=== PATIENT | male | born 1950 | race Caucasian/White ===

== ENCOUNTER 2023-04-15 15:27 | Emergency (ER) | payer MEDICARE, SELFPAY ==
--- NOTE | ~2023-04-15 | XR_ITS ---
EXAMINATION: XR chest 2V 04/15/2023 16:43 INDICATION: Cough. History of pneumonia. PROCEDURE: 2 view chest COMPARISON: No prior studies for comparison. FINDINGS: There is left lower lobe atelectasis. No focal pneumonia, edema, pleural effusion or pneumo thorax. The cardiomediastinal silhouette is within normal limits. There are no pleural effusions. T here is no pneumothorax suspected. IMPRESSION: 1: Left lower lobe atelectasis. Reviewed, dictated and finalized at location A. 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
[2023-04-15 15:51] VITALS: BP 151/61; PULSE 56; RESP 20; TEMP 36.7; O2SAT 99
--- NOTE | 2023-04-15 16:19 | ED.GENADULT ---
HPI - General Adult General Chief complaint: Upper Respiratory Infection Stated complaint: Cough Time Seen by Provider: 04/15/23 16:19 Source: patient, RN notes reviewed and old records reviewed Mode of arrival: ambulatory Limitations: no limitations History of Present Illness HPI narrative: 72-year-old male presents to the [facility] with a cough for a couple weeks. Reports that he does have an appointment with a lung doctor on Monday Patient is a diabetic, states his blood sugar was 200 this morning Was seen in mid January as well as mid February for similar symptoms, treated in the emergency room in February. Currently switching primary care providers Patient in no acute distress. Denies any chest pain, abdominal pain. Denies any fevers Related Data Home Medications Medication Instructions Recorded Confirmed aspirin 81 mg chewable tablet 81 mg PO DAILY 09/01/22 04/15/23 atorvastatin 40 mg tablet 40 mg PO DAILY 09/01/22 04/15/23 carvedilol 6.25 mg tablet 6.25 mg PO Q12H 09/01/22 04/15/23 furosemide 40 mg tablet 40 mg PO BID 09/01/22 04/15/23 glimepiride 4 mg tablet 5 mg PO QAM 09/01/22 04/15/23 insulin aspart U-100 100 unit/mL See Rx Instructions subcut TID 09/01/22 04/15/23 (3 mL) subcutaneous pen (Novolog FlexPen U-100 Insulin aspart) insulin glargine 100 unit/mL (3 32 unit subcut QPM 09/01/22 04/15/23 mL) subcutaneous pen (Lantus Solostar U-100 Insulin) levothyroxine 75 mcg tablet 75 mcg PO DAILY 09/01/22 04/15/23 losartan 50 mg tablet 50 mg PO DAILY 09/01/22 04/15/23 potassium chloride 10 mEq 20 meq PO BID 09/01/22 04/15/23 capsule,extended release rivaroxaban 15 mg tablet (Xarelto) 15 mg PO DAILY 09/01/22 04/15/23 albuterol sulfate 90 mcg/actuation 1 puff inhalation Q4H PRN 01/31/23 04/15/23 aerosol inhaler DIRECTED tiotropium 2.5 mcg-olodaterol 2.5 2 puff inhalation DAILY 01/31/23 04/15/23 mcg/actuation mist for inhalation (Stiolto Respimat) Allergies Allergy/AdvReac Type Severity Reaction Status Date / Time amoxicillin Allergy Nausea Verified 04/15/23 16:15 codine Allergy Vomiting Uncoded 04/15/23 16:15 Review of Systems Review of Systems: All systems reviewed & are unremarkable except as noted in HPI and below Constitutional: Constitutional: Reports no additional constitutional complaints Eyes: Eyes: Reports no additional eye complaints ENT: Reports system reviewed and no additional complaints, except as documented Cardiovascular: Cardiovascular: Reports no additional cardiovascular complaints, Denies chest pain and Denies dyspnea Respiratory: Respiratory: Reports as per HPI, Reports chest congestion, Reports cough and Denies dyspnea Gastrointestinal: Gastrointestinal: Reports no additional gastrointestinal complaints, Denies abdominal pain, Denies nausea and Denies vomiting Musculoskeletal: Musculoskeletal: Reports no additional musculoskeletal complaints Integumentary/Breasts: Skin/Breast: Reports system reviewed and no additional complaints, except as docu Neurologic: Reports system reviewed and no additional complaints, except as documented Psychiatric: Psychiatric: Reports no additional psychiatric complaints Allergic/Immunologic: Allergic/Immunologic: Reports no additional allergic/immunologic complaints PMFSH Surgical History Surgical History History of appendectomy History of cholecystectomy History of shoulder surgery right frozen shoulder History of tonsillectomy Social History Social History Smoking status: Former smoker Comments At the time of my signature, I reviewed and agree with the nursing past medical, surgical, social, and family history. There is no relevant family history pertinent to the patient complaint. Exam Const: General: cooperative, healthy appearing, comfortable, no acute distress, well developed, alert and well nourished
== END 2023-04-15 17:15 | disposition home or self-care (01) ==
PROVIDERS: Emergency Provider Nurse Practitioner; PCP Family Medicine Adolescent Medicine
DX: J98.11 Atelectasis (principal); Z87.891 Personal history of nicotine dependence; J44.9 Chronic obstructive pulmonary disease, unspecified; E11.9 Type 2 diabetes mellitus without complications; E03.9 Hypothyroidism, unspecified; Z86.16 Personal history of COVID-19
CPT/HCPCS: 71046; 99213; G0463

== ENCOUNTER 2023-07-05 18:45 | Emergency (ER) | payer MEDICARE, SELFPAY ==
--- NOTE | 2023-07-05 18:48 | ED.URI ---
HPI - URI/Sore Throat General Chief Complaint: Upper Respiratory Infection Stated Complaint: sore throat,chills,chest congestion Time Seen by Provider: 07/05/23 18:48 Source: patient Mode of arrival: ambulatory Limitations: no limitations History of Present Illness HPI Narrative: Emilio is a 72-year-old male patient presenting to the clinic today with complaints of sore throat, chills, and chest congestion times 2-3 days. Reports that he was exposed to a sick kid yesterday. Has a low-grade temperature in the clinic today. Denies any increasing shortness of breath or chest pain. MD elicited complaint: sore throat and nasal congestion Related Data Home Medications Medication Instructions Recorded Confirmed aspirin 81 mg chewable tablet 81 mg PO DAILY 09/01/22 04/15/23 atorvastatin 40 mg tablet 40 mg PO DAILY 09/01/22 04/15/23 carvedilol 6.25 mg tablet 6.25 mg PO Q12H 09/01/22 04/15/23 furosemide 40 mg tablet 40 mg PO BID 09/01/22 04/15/23 glimepiride 4 mg tablet 5 mg PO QAM 09/01/22 04/15/23 insulin aspart U-100 100 unit/mL See Rx Instructions subcut TID 09/01/22 04/15/23 (3 mL) subcutaneous pen (Novolog FlexPen U-100 Insulin aspart) insulin glargine 100 unit/mL (3 32 unit subcut QPM 09/01/22 04/15/23 mL) subcutaneous pen (Lantus Solostar U-100 Insulin) levothyroxine 75 mcg tablet 75 mcg PO DAILY 09/01/22 04/15/23 losartan 50 mg tablet 50 mg PO DAILY 09/01/22 04/15/23 potassium chloride 10 mEq 20 meq PO BID 09/01/22 04/15/23 capsule,extended release rivaroxaban 15 mg tablet (Xarelto) 15 mg PO DAILY 09/01/22 04/15/23 albuterol sulfate 90 mcg/actuation 1 puff inhalation Q4H PRN 01/31/23 04/15/23 aerosol inhaler DIRECTED tiotropium 2.5 mcg-olodaterol 2.5 2 puff inhalation DAILY 01/31/23 04/15/23 mcg/actuation mist for inhalation (Stiolto Respimat) Allergies Allergy/AdvReac Type Severity Reaction Status Date / Time amoxicillin Allergy Nausea Verified 07/05/23 18:51 codine Allergy Vomiting Uncoded 07/05/23 18:51 Review of Systems Review of Systems: Pertinent positives per HPI. Patient denies any fever, chills, rash, headache, visual changes, dizziness, cough, shortness of breath, chest pain, palpitations, nausea, vomiting, diarrhea, constipation, abdominal pain, or any urinary issues. PMFSH Surgical History Surgical History History of appendectomy History of cholecystectomy History of shoulder surgery right frozen shoulder History of tonsillectomy Social History Social History Smoking status: Former smoker Comments At the time of my signature, I reviewed and agree with the nursing past medical, surgical, social, and family history. There is no relevant family history pertinent to the patient complaint. Exam Narrative: General: Well-developed, well nourished, in no apparent distress Head: Normocephalic, atraumatic Eyes: Pupils equally round and reactive to light bilaterally, EOM intact, sclera and conjunctive clear, no discharge, lids normal Ears: TMs intact and congested, ear canals clear, no drainage, grossly hearing normal. Nose: Nares patent, clear nasal discharge, no inflammation, no sinus tenderness. Mouth: Oral pharynx red without lesions or masses, good dentition, MMM. Postnasal drip Neck: Supple, trachea midline, no enlargement of anterior or posterior cervical nodes, no thyroid masses or goiter palpable. Cardio: Regular rate and rhythm, s1 and s2 normal, no murmur appreciated. Resp: Diminished in the bases, no rhonchi, rales, wheezing or rubs Course Course Emergency Course: Portions of this record may have been created with voice recognition software. Level of Care: Express Care Visit Vital Signs Vital signs: Vital signs reviewed MDM - URI/Sore Throat MDM Narrative Medical decision making narrative: At the time of visit patient is
[2023-07-05 19:04] VITALS: BP 149/65; PULSE 84; RESP 16; TEMP 37.8; O2SAT 96
== END 2023-07-05 19:24 | disposition home or self-care (01) ==
PROVIDERS: Emergency Provider Nurse Practitioner Family; PCP Family Medicine
DX: J44.9 Chronic obstructive pulmonary disease, unspecified (principal); Z20.822 Contact with and (suspected) exposure to COVID-19; Z87.891 Personal history of nicotine dependence; Z79.82 Long term (current) use of aspirin; E78.00 Pure hypercholesterolemia, unspecified; E11.9 Type 2 diabetes mellitus without complications; Z79.4 Long term (current) use of insulin; Z79.84 Long term (current) use of oral hypoglycemic drugs; E03.9 Hypothyroidism, unspecified
CPT/HCPCS: 87426; 87804; 99213; G0463

== ENCOUNTER 2024-03-15 10:28 | Emergency (ER) | payer MEDICARE, SELFPAY ==
[2024-03-15 10:40] VITALS: BP 138/50; PULSE 62; RESP 20; TEMP 36.9; O2SAT 98
--- NOTE | 2024-03-15 10:45 | ED_ITS ---
HPI - URI/Sore Throat General Chief Complaint: Upper Respiratory Infection Stated Complaint: Sore Throat/Sinus/COPD Time Seen by Provider: 03/15/24 10:45 Source: patient, RN notes reviewed and old records reviewed Mode of arrival: ambulatory Limitations: no limitations History of Present Illness HPI Narrative: Patient with complicated medical history presents with complaints of productive cough that has been present for approximately 1 month. Patient does report COPD, states that he is compliant with medications. Says that he has had a congested cough for the past month, cough is productive of yellow to green sputum, worsening. He does have occasional wheezing. He is complaining today of a sore throat that has been present for 3-4 days. He denies any fever, chills, sweats. Denies any injury or trauma. Voices no other concerns or complaints today Related Data Home Medications Medication Instructions Recorded Confirmed aspirin 81 mg chewable tablet 81 mg PO DAILY 09/01/22 03/15/24 atorvastatin 40 mg tablet 40 mg PO DAILY 09/01/22 03/15/24 carvedilol 6.25 mg tablet 6.25 mg PO Q12H 09/01/22 03/15/24 furosemide 40 mg tablet 40 mg PO BID 09/01/22 03/15/24 glimepiride 4 mg tablet 5 mg PO QAM 09/01/22 03/15/24 insulin aspart U-100 100 unit/mL See Rx Instructions subcut TID 09/01/22 03/15/24 (3 mL) subcutaneous pen (Novolog FlexPen U-100 Insulin aspart) insulin glargine 100 unit/mL (3 32 unit subcut QPM 09/01/22 03/15/24 mL) subcutaneous pen (Lantus Solostar U-100 Insulin) levothyroxine 75 mcg tablet 75 mcg PO DAILY 09/01/22 03/15/24 losartan 50 mg tablet 50 mg PO DAILY 09/01/22 03/15/24 potassium chloride 10 mEq 20 meq PO BID 09/01/22 03/15/24 capsule,extended release rivaroxaban 15 mg tablet (Xarelto) 15 mg PO DAILY 09/01/22 03/15/24 albuterol sulfate 90 mcg/actuation 1 puff inhalation Q4H PRN 01/31/23 03/15/24 aerosol inhaler DIRECTED tiotropium 2.5 mcg-olodaterol 2.5 2 puff inhalation DAILY 01/31/23 03/15/24 mcg/actuation mist for inhalation (Stiolto Respimat) Allergies Allergy/AdvReac Type Severity Reaction Status Date / Time amoxicillin Allergy Nausea Verified 03/15/24 10:32 codine Allergy Vomiting Uncoded 03/15/24 10:32 Review of Systems Review of Systems: All systems reviewed & are unremarkable except as noted in HPI and below Constitutional: Constitutional: Reports as per HPI and Reports no additional constitutional complaints ENT: Reports system reviewed and no additional complaints, except as documented, Reports as per HPI and Reports sore throat Cardiovascular: Cardiovascular: Reports as per HPI and Reports no additional cardiovascular complaints Respiratory: Respiratory: Reports as per HPI, Reports no additional respiratory complaints, Reports chest congestion, Reports cough, Reports excessive phlegm production and Reports wheezing Gastrointestinal: Gastrointestinal: Reports no additional gastrointestinal complaints [facility] Surgical History Surgical History History of appendectomy History of cholecystectomy History of shoulder surgery right frozen shoulder History of tonsillectomy Social History Social History Smoking status: Former smoker Comments At the time of my signature, I reviewed and agree with the nursing past medi alanna, surgical, social, and family history. There is no relevant family history pertinent to the patient complaint. Exam Const: General: cooperative, no acute distress, alert and awake Orientation/consciousness: oriented to person, oriented to place and oriented to time HENMT: Head: normal to inspection Mouth: Yes moist mucous membranes Throat: postnasal drainage Resp: Effort & Inspection: normal respiratory effort and able to speak in complete sentences Auscultation: clear to auscultation bilaterally, no crackles, no rales, no rhonchi, no wheezes and diminished lung sounds Cardio: Palpation: normal PMI Rate: regular rate Rhythm: regular rhythm Heart sounds: S1 normal heart sound present and S2 normal heart sound present Neuro: General: oriented to person, oriented to place and oriented to time Cranial nerves: Yes CN's II-XII intact bilaterally Psych: Appearance: grossly normal Thought process: Normal thought process present Insight: Good insight present (Psych) Judgement: Good judgement present (Psych) Course Course Level of Care: Express Care Visit Vital Signs Vital signs: Vital Signs Temperature 98.5 F 03/15/24 10:40 Pulse Rate 62 03/15/24 10:40 Respiratory Rate 20 03/15/24 10:40 Blood Pressure 138/50 L 03/15/24 10:40 Pulse Oximetry 98 03/15/24 10:40 Oxygen Delivery Room Air 03/15/24 10:40 Temperature 98.5 F 03/15/24 10:40 Pulse Rate 62 03/15/24 10:40 Respiratory Rate 20 03/15/24 10:40 Blood Pressure 138/50 L 03/15/24 10:40 Pulse Oximetry 98 03/15/24 10:40 Oxygen Delivery Room Air 03/15/24 10:40 Reviewed MDM - URI/Sore Throat MDM Narrative Medical decision making narrative: Diabetic patient with COPD. Discussed risks and benefits of prednisone, he verbalizes agreement to be mindful of blood glucose levels while taking. Started Zithromax in for additive anti-inflammatory effects. Patient in no distress, stable for discharge home. Discharge instructions reviewed with patient, as well as provided in writing per nursing staff. The instructions also include specific and strict return/GO TO THE ER as well as f/u information. All questions have been answered, and the patient deny any further questions with discharge and discharge plan. Some parts of this dictation were generated by voice recognition software and may contain typographical and/or grammatical inaccuracies. Differential Diagnosis Differential diagnosis: Likely upper respiratory infection Medical Records Attestation: I reviewed the patient's medical records. Lab Data Labs: Lab Results 03/15/24 Range/Units 10:45 POC Grp A Strep Screen Negative (Negative) Discharge Plan Discharge Clinical Impression: COPD exacerbation Patient Disposition: Home, Self-Care Condition: Stable Instructions: Antibiotic Form, COPD (Chronic Obstructive Pulmonary Disease) (ED) Additional Instructions: Take medications as prescribed. Follow-up with primary care provider. Emergency department for new or worse symptoms Patient Language: Icelandic Prescriptions: New azithromycin 250 mg tablet See Rx Instructions .ROUTE .COMPLEX Qty: 6 0RF Rx Instructions: For 250 mg dose pack: take 500 mg today (day 1), then 250 mg for 4 days (days 2-5) prednisone 50 mg tablet 50 mg PO DAILY Qty: 5 0RF albuterol sulfate [Ventolin HFA] 90 mcg/actuation HFA aerosol inhaler 2 puff inhalation QID PRN (Reason: shortness of breath or wheezing) Qty: 8.5 0RF benzonatate 200 mg capsule 200 mg PO TID PRN (Reason: cough) Qty: 30 0RF No Action insulin glargine [Lantus Solostar U-100 Insulin] 100 unit/mL (3 mL) insulin pen 32 unit subcut QPM insulin aspart U-100 [Novolog FlexPen U-100 Insulin] 100 unit/mL (3 mL) insulin pen See Rx Instructions subcut TID Rx Instructions: Take 10 units twice daily and 16 units in PM subcutaneously three times a day; aspirin 81 mg tablet,chewable 81 mg PO DAILY atorvastatin 40 mg tablet 40 mg PO DAILY carvedilol 6.25 mg tablet 6.25 mg PO Q12H Rx Instructions: must administer with a meal/food furosemide 40 mg tablet 40 mg PO BID glimepiride 4 mg tablet 5 mg PO QAM Rx Instructions: administer with breakfast levothyroxine 75 mcg tablet 75 mcg PO DAILY losartan 50 mg tablet 50 mg PO DAILY potassium chloride 10 mEq capsule, extended release 20 meq PO BID Xarelto 15 mg tablet 15 mg PO DAILY Rx Instructions: must administer with evening meal albuterol sulfate 90 mcg/actuation HFA aerosol inhaler 1 puff inhalation Q4H PRN (Reason: DIRECTED) Stiolto Respimat 2.5-2.5 mcg/actuation mist 2 puff inhalation DAILY fluticasone propionate 50 mcg/actuation spray,suspension 1 spray intranasal DAILY Qty: 48 0RF Rx Instructions: administer into each nostril Follow-up/Referrals: Ladi,Fadi Maza MD [Primary Care Provider] - 1 Week Time of Disposition: 11:02
[2024-03-15 10:58] LABS: EDSTREPNEGPOS1 Negative (Negative)
== END 2024-03-15 11:05 | disposition home or self-care (01) ==
PROVIDERS: Emergency Provider Nurse Practitioner Family; PCP Family Medicine
DX: J44.1 Chronic obstructive pulmonary disease with (acute) exacerbation (principal); Z79.82 Long term (current) use of aspirin; Z79.899 Other long term (current) drug therapy; Z79.4 Long term (current) use of insulin; Z79.01 Long term (current) use of anticoagulants; Z87.891 Personal history of nicotine dependence
CPT/HCPCS: 87081; 87880; 99213; G0463